=== PATIENT | female | born 1965 | race Caucasian/White ===

== ENCOUNTER 2019-05-20 12:17 | Emergency (ER) | payer BC ==
[2019-05-20 12:53] VITALS: BP 121/77
--- NOTE | 2019-05-20 13:08 | UC ---
Ear Complaint HPI - HPI Summary HPI Summary: EARS FEELING PLUGGED FOR SEVERAL DAYS. LEFT MORE THAN RIGHT. HEARING IS DECREASED ON LEFT. NO DRAINAGE. NO URI SYMPTOMS. - History of Current Complaint Chief Complaint: UCEar Stated Complaint: EARS PLUGGED Time Seen by Provider: 05/20/19 12:39 Hx Obtained From: Patient Hx Last Menstrual Period: 01/29/14 Onset/Duration: Lasting Days, Still Present Severity Initially: Mild Severity Currently: Mild Pain Intensity: 0 Pain Scale Used: 0-10 Numeric Aggravating Factors: Nothing Alleviating Factors: Nothing Associated Signs/Symptoms: Positive: Hearing Loss. Negative: URI Symptoms - Allergies/Home Medications Allergies/Adverse Reactions: Allergies Allergy/AdvReac Type Severity Reaction Status Date / Time codeine Allergy Hallucinati Verified 05/20/19 12:54 ons Home Medications: Home Medications NK [No Home Medications Reported] 05/20/19 [History Confirmed 05/20/19] PMH/Surg Hx/FS Hx/Imm Hx Psychological History: Depression - Surgical History Surgical History: Yes Surgery Procedure, Year, and Place: R knee surgery. tonsilectomy - Family History Known Family History: Positive: Non-Contributory - Social History Alcohol Use: Weekly Alcohol Amount: 2 beers per week Substance Use Type: None Smoking Status (MU): Never Smoked Tobacco Have You Smoked in the Last Year: No Review of Systems All Other Systems Reviewed And Are Negative: Yes Constitutional: Positive: Negative ENT: Positive: Other - LEFT EAR PLUGGED Respiratory: Positive: Negative Cardiovascular: Positive: Negative Gastrointestinal: Positive: Negative Physical Exam Triage Information Reviewed: Yes Appearance: Well-Appearing, No Pain Distress, Well-Nourished Vital Signs: Initial Vital Signs Temp 97.4 F 05/20/19 12:50 Pulse 59 05/20/19 12:50 Resp 16 05/20/19 12:50 BP 121/77 05/20/19 12:50 Pulse Ox 99 05/20/19 12:50 Vital Signs Reviewed: Yes Eyes: Positive: Conjunctiva Clear ENT: Positive: Hearing grossly normal, Pharynx normal, Other - LEFT EAC IMPACTED WITH CERUMEN. AFTER CERUMEN IRRIGATED TM SEEN TO BE NORMAL Neck: Positive: Supple Respiratory: Positive: No respiratory distress, No accessory muscle use Cardiovascular: Positive: Pulses Normal Abdomen Description: Positive: Soft Musculoskeletal: Positive: No Edema Neurological: Positive: Alert Psychological: Positive: Age Appropriate Behavior Skin: Negative: Rashes Ear Complaint Course/Dx - Course Course Of Treatment: CERUMEN SUCCESSFULLY IRRIGATED FROM LEFT EAC BY RN. TM SEEN TO BE NORMAL. RIGHT-SIDED TM ALSO NORMAL. - Differential Dx/Diagnosis Provider Diagnosis: Impacted cerumen, left ear Discharge ED - Sign-Out/Discharge Documenting (check all that apply): Patient Departure All imaging exams completed and their final reports reviewed: No Studies - Discharge Plan Condition: Stable Disposition: HOME Patient Education Materials: Cerumen Impaction (ED) Referrals: No Primary Care Phys,NOPCP [Primary Care Provider] - Additional Instructions: NOW THAT YOUR EAR CANALS ARE CLEAR OF WAX YOU MAY USE A QTIP TO GENTLY AND CAREFULLY CLEAN YOUR EARS ONCE OR TWICE A WEEK TO KEEP WAX FROM BUILDING UP. DO NOT INSERT THE QTIP ANY FURTHER THAN THE DEPTH OF THE COTTON SWAB. FOR MAINTENANCE, YOU CAN PUT 1-2 DROPS OF OIL (MINERAL OIL, VEGETABLE OIL, OLIVE OIL, CANOLA OIL...) IN EACH EAR ONCE WEEKLY. THIS WILL HELP KEEP THE WAX SOFT AND WILL HOPEFULLY PREVENT BUILDUP IN THE FUTURE. NOTE: IF YOU HAVE ANY CONCERN THAT YOU MAY HAVE POPPED YOUR EAR DRUM DO NOT PUT ANYTHING IN YOUR EAR. - Billing Disposition and Condition Condition: STABLE Disposition: Home
== END 2019-05-20 13:24 | disposition home or self-care (01) ==
LOC: UCEAST 12:17
DX: H61.22 Impacted cerumen, left ear (principal); Z88.5 Allergy status to narcotic agent
CPT/HCPCS: 99211; G0463